=== PATIENT | female | born 1955 | race Caucasian/White ===

== ENCOUNTER 2021-03-17 00:34 | Inpatient (IN) | payer MEDICARE, MEDICAID ==
[~2021-03-17] VITALS: Ht 154.9 cm; Wt 48.1 kg
[2021-03-17] MEDS ORDERED: epiNEPHrine 1 mg/ml inj IM STA (00:39)
[2021-03-17] MEDS ORDERED: ipratropium/albuterol 3ml nebule NEB ONE (00:40)
[2021-03-17] MEDS ORDERED: methylPREDNISolone sod succ 125mg/2ml vial IV ONE (00:40)
[2021-03-17] MEDS ORDERED: LORazepam 2 mg/ml vial IV ONE (00:40)
[2021-03-17 01:10] LABS: BASOPHILS # (AUTO) 0.1 X10'3 (0-0.2); BASOPHILS % (AUTO) 1.1 % (0-1); EOSINOPHILS # (AUTO) 0.2 X10'3 (0-0.9); EOSINOPHILS % (AUTO) 2.5 % (0-6); HEMATOCRIT 41.2 % (35.0-45.0); HEMOGLOBIN 14.6 g/dl (12.0-16.0); LYMPHOCYTES # (AUTO) 3.8 X10'3 (1.1-4.8); LYMPHOCYTES % (AUTO) 39.8 % (21-51); MEAN CORPUSCULAR HEMOGLOBIN 30.7 PG (27.0-31.0); MEAN CORPUSCULAR HGB CONC 35.5 g/dL (33.0-36.5); MEAN CORPUSCULAR VOLUME 86.6 FL (78-98); MONOCYTES % (AUTO) 10.5 % (2-12); NEUTROPHILS # (AUTO) 4.4 X10'3 (1.8-7.7); NEUTROPHILS % (AUTO) 46.1 % (42-75); PLATELET COUNT 310 X10'3 (140-440); RED BLOOD COUNT 4.76 X10'6 (4.20-5.60); RED CELL DISTRIBUTION WIDTH 14.6 % (11.5-14.5); WHITE BLOOD COUNT 9.6 X10'3 (4.5-11.0)
[2021-03-17 01:18] LABS: ALANINE AMINOTRANSFERASE 22 U/L (12-78); ALBUMIN 3.8 G/DL (3.4-5.0); ALBUMIN/GLOBULIN RATIO 1.3 (1.1-1.5); ALKALINE PHOSPHATASE 79 IU/L (46-116); ANION GAP 4 (8-16); ASPARTATE AMINO TRANSFERASE 18 U/L (10-37); BILIRUBIN,TOTAL 0.3 MG/DL (0.1-1.0); BLOOD UREA NITROGEN 16 MG/DL (7-18); BUN/CREATININE RATIO 20.3 (6.6-38.0); CALCIUM 8.6 MG/DL (8.5-10.1); CHLORIDE 100 MMOL/L (99-107); CREATININE 0.79 MG/DL (0.40-0.90); GLUCOSE 136 MG/DL (70-104); POTASSIUM 3.5 MMOL/L (3.5-5.1); SODIUM 133 MMOL/L (135-145); TOTAL CARBON DIOXIDE 29.2 MMOL/L (24-32); TOTAL PROTEIN 6.7 G/DL (6.4-8.2); eGFR 73 ML/MIN
[2021-03-17 02:10] LABS: D-DIMER 0.29 MG/L FEU (0-0.50)
[2021-03-17] MEDS ORDERED: albuterol 2.5 MG/3 ML nebule CONTNEB PRN (02:45)
[2021-03-17] MEDS ORDERED: albuterol 2.5 MG/3 ML nebule ONE (02:58)
[2021-03-17] MEDS ORDERED: acetaminophen 325mg tablet PO PRN ×2 (03:40)
[2021-03-17] MEDS ORDERED: magnesium 4gm in 100ml NS 100 ML IV PRN (03:40)
[2021-03-17] MEDS ORDERED: HYDROcodone/acetaminophen 5mg/325mg tablet PO PRN (03:40)
[2021-03-17] MEDS ORDERED: morphine 2 MG/ML inj. syringe IV PRN (03:40)
[2021-03-17] MEDS ORDERED: potassium Cl 40MEQ/1/2NS 520ml 520 ML IV PRN ×2 (03:40)
[2021-03-17] MEDS ORDERED: mag hydrox/Alum hydrox/simeth 30ml oral suspension PO PRN (03:40)
[2021-03-17] MEDS ORDERED: magnesium 2GM in 50ml NS 50 ML IV PRN (03:40)
[2021-03-17] MEDS ORDERED: magnesium Cl slow-release 64mg tablet PO PRN (03:40)
[2021-03-17] MEDS ORDERED: ondansetron/PF 4mg/2ml inj IV PRN (03:40)
[2021-03-17] MEDS ORDERED: magnesium hydroxide 30ml (MOM) UD suspension PO PRN (03:40)
[2021-03-17] MEDS ORDERED: potassium Cl 20 mEq SR tablet PO PRN ×2 (03:40)
[2021-03-17] MEDS: albuterol 2.5 MG/3 ML nebule NEB SCH ×2 (04:00→07:58)
--- NOTE | 2021-03-17 04:24 | NUR ---
Licha iyer gave me patient purse, left purse at patients bedside with her cellphone.
[2021-03-17] MEDS: normal saline 1000ml 1,000 ML IV SCH ×2 (06:02→19:34)
[2021-03-17] MEDS: K and/or MAG REPLACEMENT MC SCH ×2 (08:00→20:00)
[2021-03-17] MEDS ORDERED: methylPREDNISolone sod succ 125mg/2ml vial IV SCH (08:00)
[2021-03-17] MEDS ORDERED: PERFLUTREN PROTEIN-A MICROSPHR (Optison) 0.22 MG/ML 3ML VIAL IV ONE (08:00)
--- NOTE | 2021-03-17 08:18 | NUR ---
ATTEMPT TO CALL REPORT TO PCU. PATIENT RESTING IN BED WITH O2 SAT 90% ON 2LPM/NC.
--- NOTE | 2021-03-17 08:53 | NUR ---
ATTEMPTING AGAIN TO CALL REPORT TO PCU
[2021-03-17] MEDS ORDERED: ipratropium/albuterol 3ml nebule NEB PRN (08:55)
--- NOTE | 2021-03-17 09:17 | NUR ---
REPORT GIVEN TO JEFF HUANG ON PCU
[2021-03-17] MEDS: azithromycin 250mg tablet PO SCH (09:42)
[2021-03-17] MEDS: heparin, porcine 5000 units/ml vial SQ SCH ×2 (09:43→19:34)
[2021-03-17] MEDS: CefTRIAXone 2gm/D5W 50ml BAG 50 ML IV SCH (09:43)
--- NOTE | 2021-03-17 10:32 | NUR ---
patient was admitted from ED to PCU at 10.00, patient arrived on a wheelchair accompanied by a staff nurse. patient was alert and oriented with stable vital signs. patient skin is intact , patient has a left PIV flushed and patent. pt is oriented to room and equipment , patient demonstrate how to use a call waller
--- NOTE | 2021-03-17 10:42 | NUR ---
respiratory was paged regaring patient SOB cough patient at [id number] maggie Janine has shortness of breath and coughing , can she gets her neb treatment , thank you ,liliana AGUILAR 1980
[2021-03-17 11:00] VITALS: BP 122/77
[2021-03-17] MEDS: ipratropium/albuterol 3ml nebule NEB SCH ×4 (12:10→23:04)
[2021-03-17] MEDS ORDERED: STINGING NETTLE PO (13:33)
[2021-03-17] MEDS ORDERED: TIOT4MIS3 IH (13:33)
[2021-03-17 15:00] VITALS: BP 130/78
[2021-03-17] MEDS: methylPREDNISolone sod succ 125mg/2ml vial IV SCH ×2 (15:00→19:28)
--- NOTE | 2021-03-17 18:29 | NUR ---
Patient in room PCU 3013. I have received report from Toro AGUILAR and had the opportunity to ask questions and assume patient care.
[2021-03-17 19:09] LABS: URINE AMPHETAMINE SCREEN NEGATIVE (Neg); URINE BARBITUATE SCREEN NEGATIVE (Neg); URINE BENZODIAZEPINES SCREEN NEGATIVE (Neg); URINE CANNABINOID SCREEN NEGATIVE (Neg); URINE COCAINE SCREEN NEGATIVE (Neg); URINE METHADONE SCREEN NEGATIVE (Neg); URINE OPIATE SCREEN NEGATIVE (Neg); URINE PHENCYCLIDINE SCREEN NEGATIVE (Neg)
[2021-03-17] MEDS: lactobacillus rhamnosus 10,000 MMU CELLS/CAPSULE PO SCH (19:26)
[2021-03-17 19:29] LABS: UA COLLECTION TYPE NON-SPECIFIED
[2021-03-17 19:30] LABS: CLARITY,URINE CLEAR (Clear); COLOR,URINE STRAW (Yellow); GLUCOSE, URINE NEGATIVE (Neg); KETONES,URINE NEGATIVE (Neg); PROTEIN,URINE NEGATIVE (Neg)
[2021-03-17 19:31] LABS: LEUKOCYTE ESTERASE ,URINE SMALL (Neg); NITRITES, URINE NEGATIVE (Neg); OCCULT BLOOD,URINE NEGATIVE (Neg); UROBILINOGEN,URINE 0.2 E.U/dL (0.2-1.0)
[2021-03-17 19:52] LABS: RENAL CELLS, URINE FEW /HPF; SQUAMOUS EPITHELIAL CELL,UR FEW /LPF (FEW)
[2021-03-17 19:55] LABS: BACTERIA,URINE FEW /HPF (Neg); RBC,URINE 0-2 /HPF (0-2); WBC,URINE 0-4 /HPF (0-4)
[2021-03-17 20:00] VITALS: BP 127/82
[2021-03-17] MEDS ORDERED: temazepam 15mg capsule PO PRN (21:00)
[2021-03-17 22:00] VITALS: BP 123/83
[2021-03-18 02:00] VITALS: BP 127/76
[2021-03-18] MEDS: methylPREDNISolone sod succ 125mg/2ml vial IV SCH ×2 (02:25→08:05)
[2021-03-18] MEDS: ipratropium/albuterol 3ml nebule NEB SCH ×3 (02:49→11:00)
--- NOTE | 2021-03-18 06:13 | NUR ---
Problems reprioritized. Patient report given, with Pooja AGUILAR questions answered & plan of care reviewed with .
--- NOTE | 2021-03-18 06:26 | NUR ---
Problems reprioritized. Patient report given, questions answered & plan of care reviewed with Pooja AGUILAR.
--- NOTE | 2021-03-18 06:47 | NUR ---
Patient in room PCU 3013. I have received report from MATT AGUILAR and had the opportunity to ask questions and assume patient care.
[2021-03-18 06:54] LABS: BASOPHILS % (AUTO) 0.1 % (0-1); EOSINOPHILS % (AUTO) 0 % (0-6); HEMATOCRIT 39.4 % (35.0-45.0); HEMOGLOBIN 13.3 g/dl (12.0-16.0); LYMPHOCYTES # (AUTO) 0.4 X10'3 (1.1-4.8); MEAN CORPUSCULAR HEMOGLOBIN 29.8 PG (27.0-31.0); MEAN CORPUSCULAR HGB CONC 33.7 g/dL (33.0-36.5); MEAN CORPUSCULAR VOLUME 88.5 FL (78-98); MEAN PLATELET VOLUME 6.5 FL (7.4-10.4); MONOCYTES # (AUTO) 0.2 X10'3 (0-0.9); MONOCYTES % (AUTO) 2.8 % (2-12); NEUTROPHILS % (AUTO) 92.1 % (42-75); PLATELET COUNT 306 X10'3 (140-440); RED BLOOD COUNT 4.46 X10'6 (4.20-5.60); RED CELL DISTRIBUTION WIDTH 14.4 % (11.5-14.5); WHITE BLOOD COUNT 7.6 X10'3 (4.5-11.0)
[2021-03-18 07:00] VITALS: BP 128/68
[2021-03-18 07:09] LABS: ALANINE AMINOTRANSFERASE 20 U/L (12-78); ALBUMIN 3.5 G/DL (3.4-5.0); ALBUMIN/GLOBULIN RATIO 1.3 (1.1-1.5); ALKALINE PHOSPHATASE 65 IU/L (46-116); ANION GAP 2 (8-16); ASPARTATE AMINO TRANSFERASE 18 U/L (10-37); BILIRUBIN,TOTAL 0.3 MG/DL (0.1-1.0); BLOOD UREA NITROGEN 12 MG/DL (7-18); BUN/CREATININE RATIO 16.7 (6.6-38.0); CALCIUM 8.9 MG/DL (8.5-10.1); CHLORIDE 102 MMOL/L (99-107); CREATININE 0.72 MG/DL (0.40-0.90); GLUCOSE 149 MG/DL (70-104); MAGNESIUM 2.1 MG/DL (1.5-2.4); POTASSIUM 4.4 MMOL/L (3.5-5.1); SODIUM 134 MMOL/L (135-145); TOTAL CARBON DIOXIDE 30.3 MMOL/L (24-32); TOTAL PROTEIN 6.2 G/DL (6.4-8.2); eGFR 81 ML/MIN
[2021-03-18] MEDS: K and/or MAG REPLACEMENT MC SCH (08:00)
[2021-03-18] MEDS: heparin, porcine 5000 units/ml vial SQ SCH (08:00)
[2021-03-18] MEDS: CefTRIAXone 2gm/D5W 50ml BAG 50 ML IV SCH (08:04)
[2021-03-18] MEDS: lactobacillus rhamnosus 10,000 MMU CELLS/CAPSULE PO SCH (08:05)
[2021-03-18] MEDS: azithromycin 250mg tablet PO SCH (08:05)
[2021-03-18 11:00] VITALS: BP 128/68
--- NOTE | 2021-03-18 11:13 | NUR ---
1100 SVN REFUSED BY PT.
[2021-03-18] MEDS ORDERED: PEG 400/HYPROMELLOSE/GLYCERIN 15ml bottle EACHEYE PRN (11:35)
[2021-03-18] MEDS ORDERED: LACT1CAP26 PO (12:50)
[2021-03-18] MEDS ORDERED: PRED10TA23 PO (12:50)
[2021-03-18] MEDS ORDERED: LEVO750T46 PO (12:50)
[2021-03-18] MEDS ORDERED: BUDE10.22 INH (12:50)
[2021-03-18] MEDS ORDERED: ALBU8.5H17 INH (12:50)
--- NOTE | 2021-03-18 14:58 | NUR ---
patient very restless this am. constantly walking to other units on this floor, states "I have to walk". patient seen by Dr Jurado is for DC. Meds called into [facility]. All DC instructions given to patient. patient DC home via private car with significant other in stable condition
== END 2021-03-18 13:28 | disposition home or self-care (01) | DRG 192 ==
LOC: ER 00:34 → ED HOLD 03:44 → PCU 3S 09:50
PROVIDERS: ADMIT Internal Medicine; ATTEND Family Medicine
DX: J44.1 Chronic obstructive pulmonary disease with (acute) exacerbation (principal); Z20.822 Contact with and (suspected) exposure to COVID-19; F17.200 Nicotine dependence, unspecified, uncomplicated; Z88.1 Allergy status to other antibiotic agents; Z91.048 Other nonmedicinal substance allergy status
CPT/HCPCS: 36415; 71045; 80053; 80305; 81001; 83605; 83735; 83880; 84145; 84484; 85025; 85379; 87040; 87081; 87088; 87635; 93005; 93306; 94640; 94760; 96372; 96374; 96375; 99285; A7015; C9803; G0378; J0171; J0696; J1644; J2060; J2930; J7030